=== PATIENT | male | born 1965 | race African-American/Black ===

== ENCOUNTER 2017-06-11 11:22 | Day surgery (SDC) | payer MEDICARE, MEDICAID ==
[2017-06-11 13:38] LABS: POTASSIUM 4.3 mmol/L (3.5-5.1)
[2017-06-11] MEDS ORDERED: LIDOCAINE 1% (MDV) 20 ML INJ (16:28)
[2017-06-11] MEDS ORDERED: IODIXANOL LOCM 100 ML BTL (16:28)
[2017-06-11] MEDS ORDERED: HEPARIN 1000 UNITS/ML 10 ML INJ (16:28)
== END 2017-06-11 17:10 | disposition home or self-care (01) ==
LOC: SDS 11:22
DX: I12.0 Hypertensive chronic kidney disease with stage 5 chronic kidney disease or end stage renal disease (principal); N18.6 End stage renal disease
CPT/HCPCS: 36902; 82962; 84132

== ENCOUNTER 2017-09-03 11:59 | Day surgery (SDC) | payer MEDICARE, MEDICAID ==
[2017-09-03 13:01] LABS: ADD MAN DIFF? NO
[2017-09-03 13:04] LABS: BASOPHILS % 0.5 % (0.0-2.0); EOSINOPHILS # 0.1 10^3/ul (0.0-0.5); EOSINOPHILS % 1.6 % (0.0-7.0); HEMATOCRIT 35.9 % (42.0-52.0); HEMOGLOBIN 11.7 g/dl (14.0-18.0); LYMPHOCYTES # 1.1 10^3/ul (0.8-2.9); LYMPHOCYTES % 18.4 % (15.0-51.0); MEAN CORPUSCULAR HEMOGLOBIN 30.5 pg (29.0-33.0); MEAN CORPUSCULAR HGB CONC 32.6 g/dl (32.0-37.0); MEAN CORPUSCULAR VOLUME 93.5 fl (82.0-101.0); MEAN PLATELET VOLUME 11.2 fl (7.4-10.4); MONOCYTE # 0.4 10^3/ul (0.3-0.9); MONOCYTES % 6.6 % (0.0-11.0); NEUTROPHIL # 4.2 10^3/ul (1.6-7.5); NEUTROPHILS % 72.6 % (39.0-77.0); PLATELET COUNT 121 10^3/UL (140-415); RED BLOOD COUNT 3.84 10^6/ul (4.70-6.10); RED CELL DISTRIBUTION WIDTH 13.9 % (11.5-14.5)
[2017-09-03 13:04] LABS: WHITE BLOOD COUNT 5.8 10^3/ul (4.8-10.8)
[2017-09-03 13:27] LABS: ANION GAP 20 (8-16); CARBON DIOXIDE 33 mmol/L (21-31); CHLORIDE 96 mmol/L (97-110); GLUCOSE 162 mg/dl (70-220); INR 1.01; PROTIME 13.4 Sec (11.9-14.9)
[2017-09-03 13:28] LABS: PARTIAL THROMBOPLASTIN TIME 29.1 Sec (25.0-35.0)
[2017-09-03 13:33] LABS: BLOOD UREA NITROGEN 27 mg/dl (7-20); CALCIUM 9.2 mg/dl (8.4-10.2); CREATININE 9.29 mg/dl (0.61-1.24); POTASSIUM 4.1 mmol/L (3.5-5.1)
[2017-09-03 13:35] LABS: SODIUM 145 mmol/L (135-144)
[2017-09-03] MEDS ORDERED: IODIXANOL LOCM 50 ML BTL ×4 (14:23→15:24)
[2017-09-03] MEDS ORDERED: LIDOCAINE 1% (MDV) 20 ML INJ (14:23)
[2017-09-03] MEDS ORDERED: FENTAnyl 50 MCG/ML VIAL (14:28)
[2017-09-03] MEDS ORDERED: HEPARIN 1000 UNITS/ML 10 ML INJ (15:17)
[2017-09-03] MEDS ORDERED: MIDAZOLAM 1 MG/ML 2 ML INJ (15:41)
== END 2017-09-03 16:20 | disposition home or self-care (01) ==
LOC: SDS 11:59
DX: I12.0 Hypertensive chronic kidney disease with stage 5 chronic kidney disease or end stage renal disease (principal); N18.6 End stage renal disease; H54.8 Legal blindness, as defined in USA
CPT/HCPCS: 36903; 75820; 80048; 82962; 85025; 85610; 85730

== ENCOUNTER 2018-01-16 14:14 | Outpatient (CLI) | payer MEDICARE, MEDICAID ==
[2018-01-16 15:03] LABS: ADD MAN DIFF? NO
[2018-01-16 15:06] LABS: WHITE BLOOD COUNT 5.6 10^3/ul (4.8-10.8)
[2018-01-16 15:06] LABS: BASOPHILS % 0.7 % (0.0-2.0); EOSINOPHILS # 0.1 10^3/ul (0.0-0.5); EOSINOPHILS % 2.1 % (0.0-7.0); HEMATOCRIT 36.4 % (42.0-52.0); HEMOGLOBIN 11.7 g/dl (14.0-18.0); LYMPHOCYTES # 1.1 10^3/ul (0.8-2.9); LYMPHOCYTES % 19.7 % (15.0-51.0); MEAN CORPUSCULAR HEMOGLOBIN 29.5 pg (29.0-33.0); MEAN CORPUSCULAR HGB CONC 32.1 g/dl (32.0-37.0); MEAN CORPUSCULAR VOLUME 91.7 fl (82.0-101.0); MEAN PLATELET VOLUME 11.6 fl (7.4-10.4); MONOCYTE # 0.6 10^3/ul (0.3-0.9); MONOCYTES % 10.8 % (0.0-11.0); NEUTROPHIL # 3.7 10^3/ul (1.6-7.5); NEUTROPHILS % 66.3 % (39.0-77.0); PLATELET COUNT 108 10^3/UL (140-415); POSITIVE DIFF @See below; RED BLOOD COUNT 3.97 10^6/ul (4.70-6.10); RED CELL DISTRIBUTION WIDTH 14.8 % (11.5-14.5)
[2018-01-16 15:26] LABS: INR 0.99; PROTIME 13.2 Sec (11.9-14.9)
[2018-01-16 15:27] LABS: PARTIAL THROMBOPLASTIN TIME 32.3 Sec (25.0-35.0)
[2018-01-16 15:28] LABS: ANION GAP 16 (8-16); BLOOD UREA NITROGEN 23 mg/dl (7-20); CALCIUM 9.2 mg/dl (8.4-10.2); CARBON DIOXIDE 35 mmol/L (21-31); CHLORIDE 96 mmol/L (97-110); CREATININE 8.37 mg/dl (0.61-1.24); GLUCOSE 129 mg/dl (70-220); POTASSIUM 4.4 mmol/L (3.5-5.1); SODIUM 143 mmol/L (135-144)
[2018-01-16 17:07] LABS: EOSINOPHILS % (M) 3 % (0-7); GIANT THROMBO% (M) 1 % (0-0); LYMPHOCYTES #M 1.5 10^3/ul (0.8-2.9); LYMPHOCYTES % (M) 27 % (15-51); MONOCYTE #M 0.5 10^3/ul (0.3-0.9); MONOCYTES % (M) 9 % (0-11); SEGMENTED NEUTROPHILS (M) % 61 % (39-77); SMUDGE%M 9 % (0-0)
== END 2018-01-16 17:46 | disposition home or self-care (01) ==
LOC: SDS 14:14 → LAB 14:40 → SDS 17:46
DX: I12.0 Hypertensive chronic kidney disease with stage 5 chronic kidney disease or end stage renal disease (principal); N18.6 End stage renal disease; Z53.9 Procedure and treatment not carried out, unspecified reason
CPT/HCPCS: 80048; 82962; 85025; 85610; 85730

== ENCOUNTER 2018-01-22 12:21 | Day surgery (SDC) | payer MEDICARE, MEDICAID ==
[2018-01-22] MEDS ORDERED: HEPARIN 1000 UNITS/NS (A-LINE) 1,000 ML (13:56)
[2018-01-22] MEDS ORDERED: LIDOCAINE 1% (MDV) 20 ML INJ (13:56)
[2018-01-22] MEDS ORDERED: MIDAZOLAM 1 MG/ML 2 ML INJ (13:57)
[2018-01-22] MEDS ORDERED: FENTAnyl 50 MCG/ML VIAL (13:57)
[2018-01-22 14:09] LABS: ADD MAN DIFF? NO
[2018-01-22 14:11] LABS: BASOPHILS % 0.6 % (0.0-2.0); EOSINOPHILS # 0.1 10^3/ul (0.0-0.5); HEMOGLOBIN 11.3 g/dl (14.0-18.0); LYMPHOCYTES # 1.2 10^3/ul (0.8-2.9); LYMPHOCYTES % 24.8 % (15.0-51.0); MEAN CORPUSCULAR HEMOGLOBIN 30.1 pg (29.0-33.0); MEAN CORPUSCULAR HGB CONC 32.3 g/dl (32.0-37.0); MEAN CORPUSCULAR VOLUME 93.3 fl (82.0-101.0); MEAN PLATELET VOLUME 11.6 fl (7.4-10.4); MONOCYTE # 0.5 10^3/ul (0.3-0.9); NEUTROPHILS % 62.2 % (39.0-77.0); PLATELET COUNT 118 10^3/UL (140-415); RED BLOOD COUNT 3.75 10^6/ul (4.70-6.10); RED CELL DISTRIBUTION WIDTH 14.8 % (11.5-14.5)
[2018-01-22 14:11] LABS: WHITE BLOOD COUNT 4.9 10^3/ul (4.8-10.8)
[2018-01-22] MEDS ORDERED: HEPARIN 1000 UNITS/ML 10 ML INJ (14:13)
[2018-01-22 14:14] LABS: INR 1.02; PROTIME 13.5 Sec (11.9-14.9); PT RATIO 1.1
[2018-01-22 14:15] LABS: PARTIAL THROMBOPLASTIN TIME 29.6 Sec (23.0-35.0)
[2018-01-22 14:17] LABS: ALANINE AMINOTRANSFERASE 24 IU/L (13-69); ALBUMIN 3.9 g/dl (3.3-4.9); ALBUMIN/GLOBULIN RATIO 1.08; ALKALINE PHOSPHATASE 144 IU/L (42-121); ANION GAP 18 (8-16); ASPARTATE AMINO TRANSFERASE 14 IU/L (15-46); BILIRUBIN,INDIRECT 0.2 mg/dl (0-1.1); BILIRUBIN,TOTAL 0.2 mg/dl (0.2-1.3); BLOOD UREA NITROGEN 36 mg/dl (7-20); CALCIUM 9.2 mg/dl (8.4-10.2); CARBON DIOXIDE 33 mmol/L (21-31); CHLORIDE 97 mmol/L (97-110); CREATININE 12.11 mg/dl (0.61-1.24); GLUCOSE 117 mg/dl (70-220); POTASSIUM 4.4 mmol/L (3.5-5.1); SODIUM 144 mmol/L (135-144); TOTAL PROTEIN 7.5 g/dl (6.1-8.1)
== END 2018-01-22 16:18 | disposition home or self-care (01) ==
LOC: SDS 12:21
DX: I12.0 Hypertensive chronic kidney disease with stage 5 chronic kidney disease or end stage renal disease (principal); N18.6 End stage renal disease; T82.858A Stenosis of other vascular prosthetic devices, implants and grafts, initial encounter; Y84.1 Kidney dialysis as the cause of abnormal reaction of the patient, or of later complication, without mention of misadventure at the time of the procedure; E11.9 Type 2 diabetes mellitus without complications; H54.8 Legal blindness, as defined in USA
CPT/HCPCS: 36902; 80053; 82962; 85025; 85610; 85730